=== PATIENT | male | born 1960 | race Caucasian/White ===

== ENCOUNTER 2018-05-23 09:55 | Inpatient (IN) | payer OTHER ==
[~2018-05-23] VITALS: Ht 180.3 cm; Wt 91.3 kg
[2018-05-23] MEDS ORDERED: IV NORMAL SALINE 1,000ML 1,000 ML IV ONE (10:30)
--- NOTE | 2018-05-23 10:36 | PHYS DOC ---
Past History Past Medical History: No Pertinent History Past Surgical History: Appendectomy Alcohol Use: Occasionally Additional Alcohol Information: 2-3 beers daily Drug Use: None Adult General Chief Complaint Chief Complaint: EARACHE/EAR PAIN HPI HPI 57-year-old male with no significant medical history and most pertinent history of diabetes presents with progressive right ear pain and swelling. He states he saw his primary doctor yesterday and was prescribed steroid drops and oral Levaquin. After taking the first antibiotic dose patient states the pain and redness increased. He denies any fever chills or sweats. He states he has had this similar problem once in the and another time in the early . He states he was hospitalized at that time.[] Review of Systems Review of Systems Constitutional: Denies fever or chills [] Eyes: Denies change in visual acuity, redness, or eye pain [] HENT: Per history of present illness[] Respiratory: Denies cough or shortness of breath [] Cardiovascular: No additional information not addressed in HPI [] GI: Denies abdominal pain, nausea, vomiting, bloody stools or diarrhea [] : Denies dysuria or hematuria [] Musculoskeletal: Denies back pain or joint pain [] Integument: Denies rash or skin lesions [] Neurologic: Denies headache, focal weakness or sensory changes [] Endocrine: Denies polyuria or polydipsia [] All other systems were reviewed and found to be within normal limits, except as documented in this note. Current Medications Current Medications Current Medications Medications (Trade) Dose Ordered Sig/Darleen Start Time Stop Time Status Last Admin Dose Admin Levofloxacin/ Dextrose 150 ml @ 150 mls/hr 1X ONCE 05/23/18 10:30 05/23/18 11:29 Sodium Chloride 1,000 ml @ 1,000 mls/hr 1X ONCE 05/23/18 10:30 05/23/18 11:29 Allergies Allergies Allergies Coded Allergies Type Severity Reaction Last Updated Verified No Known Drug Allergies 05/23/18 No Physical Exam Physical Exam Constitutional: Well developed, well nourished, no acute distress, non-toxic appearance. [] HENT: Right ear perichondritis is very evident. Tender and erythematous to however I do not appreciate any area of abscess. The auricular canal is moderately to severely swollen. [] Eyes: PERRLA, EOMI, conjunctiva normal, no discharge. [] Neck: Normal range of motion, no tenderness, supple, no stridor. [] Cardiovascular:Heart rate regular rhythm, no murmur [] Lungs & Thorax: Bilateral breath sounds clear to auscultation [] Abdomen: Bowel sounds normal, soft, no tenderness, no masses, no pulsatile masses. [] Skin: Warm, dry, no erythema, no rash. [] Back: No tenderness, no CVA tenderness. [] Extremities: No tenderness, no cyanosis, no clubbing, ROM intact, no edema. [] Neurologic: Alert and oriented X 3, normal motor function, normal sensory function, no focal deficits noted. [] Psychologic: Affect normal, judgement normal, mood normal. [] Current Patient Data Vital Signs Vital Signs Date Time Temp Pulse Resp B/P (MAP) Pulse Ox O2 Delivery O2 Flow Rate FiO2 05/23/18 09:55 97.4 106 20 96 Room Air EKG EKG [] Radiology/Procedures Radiology/Procedures [] Impressions: Impression: Perichondritis right ear Course & Med Decision Making Course & Med Decision Making Pertinent Labs and Imaging studies reviewed. (See chart for details) [] Dragon Disclaimer Dragon Disclaimer This electronic medical record was generated, in whole or in part, using a voice recognition dictation system. Departure Departure: Referrals: AMINATA CHAUDHARY DO (PCP) ALEX STROUD DO May 23, 2018 10:36
[2018-05-23] MEDS ORDERED: ACETAMINOPHEN 325 MG TABLET PO PRN (10:45)
[2018-05-23 10:50] LABS: BASO % 0 % (0-3); EOS # 0.1 x10^3/uL (0.0-0.7); EOS % 1 % (0-3); HEMATOCRIT 47.7 % (39.0-53.0); HEMOGLOBIN 16.3 g/dL (13.0-17.5); LYMPH # 1.7 x10^3/uL (1.0-4.8); LYMPH % 20 % (24-48); MEAN CORPUSCULAR HEMOGLOBIN 33 pg (25-35); MEAN CORPUSCULAR HGB CONC 34 g/dL (31-37); MEAN CORPUSCULAR VOLUME 97 fL (79-100); MONO % 12 % (0-9); NEUT # 5.7 x10^3uL (1.8-7.7); NEUT % 66 % (31-73); PLATELET COUNT 220 x10^3/uL (140-400); RED BLOOD COUNT 4.93 x10^6/uL (4.30-5.70); RED CELL DISTRIBUTION WIDTH 12.8 % (11.5-14.5); WHITE BLOOD COUNT 8.6 x10^3/uL (4.0-11.0)
[2018-05-23 11:02] LABS: ALBUMIN 3.7 g/dL (3.4-5.0); ALBUMIN/GLOBULIN RATIO 0.9 (1.0-1.7); CALCIUM 9.1 mg/dL (8.5-10.1); CREATININE 0.9 mg/dL (0.7-1.3); GFR 86.7; POTASSIUM 3.8 mmol/L (3.5-5.1); TOTAL BILIRUBIN 0.4 mg/dL (0.2-1.0); TOTAL PROTEIN 7.9 g/dL (6.4-8.2)
[2018-05-23 12:30] VITALS: BP 118/73
--- NOTE | 2018-05-23 14:35 | HP ---
ADMIT DATE: 05/23/2018 HISTORY OF PRESENT ILLNESS: The patient is a 57-year-old male patient who came to the Emergency Room complaining of progressive right ear pain and swelling. He states that he saw his primary care physician who prescribed steroid drops and oral Levaquin after taking the first antibiotic dose, the patient states that the pain and redness has increased. He denied any fever, chills or sweats. He had had similar problems in , another time in early 1999 and he was hospitalized at time. He was seen in the Emergency Room, was diagnosed with right ear otitis externa and perichondritis and was continued on IV Levaquin. PAST MEDICAL HISTORY: Significant for a similar episode of otitis externa. He has no other medical problems. PAST SURGICAL HISTORY: Significant for appendectomy. ALLERGIES: He has no known drug allergies. MEDICATIONS: He occasionally uses ibuprofen [id number]. FAMILY HISTORY: Unremarkable. SOCIAL HISTORY: He is , has 3 sons. He does not smoke, but drinks 3 beers a day. 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 REVIEW OF SYSTEMS: As per history of present illness. PHYSICAL EXAMINATION GENERAL: When I examined him, he looked well and was clearly in no apparent respiratory distress. No pallor, jaundice, cyanosis, or thyromegaly. No jugular venous distension. No limb edema. VITAL SIGNS: His heart rate was 87, blood pressure 118/73, temperature was 98.1, respiratory rate was 20, and oxygen saturation was 96%. HEAD, EYES, EAR, NOSE AND THROAT: Showed normocephalic, atraumatic. NECK: Supple. HEART: Showed normal first and second heart sounds. No gallop, rub or murmur. CHEST: Clear to auscultation. No crepitation or rhonchi. ABDOMEN: Distended, soft, nontender. NEUROLOGIC: He was awake, alert, responding appropriately. All cranial nerves are intact. EXTREMITIES: He moves extremities without difficulty. His examination of the right ear compared to the left showed as marked erythema and swelling of the external ear pinna tragus and the external canal is a slit-like markedly swollen and tender. There is no lymphadenopathy. LABORATORY WORK: Showed a showed a white cell count of 8600, hemoglobin 16, hematocrit 48, MCV 97 and platelet count 220,000 with normal manual differential. His chemistry showed a serum sodium 137, potassium 3.8, chloride 101, bicarbonate 28, anion gap of 8, BUN 12, creatinine 0.9, estimated GFR was 87 mL per minute, his glucose was 102, calcium was 9.1. Total bilirubin, AST, ALT, alkaline phosphatase were normal. His total protein was 7.9 and albumin was 3.7. ASSESSMENT: Otitis externa with perichondritis. PLAN: To continue with IV Levaquin. I will add Ciprodex and the pain medication and see his response with antibiotic both locally and IV. We will decide further management accordingly. JODIE GORDILLO MD DR: TOMI/madelyn JOB#: [id number] / [id number]
[2018-05-23 17:31] VITALS: BP 105/72
[2018-05-23 19:15] VITALS: BP 102/72
[2018-05-23] MEDS: CIPROFLOXACIN 0.3% OPHTH SOLUTION 2.5ML BOTTLE. AD SCH (20:53)
[2018-05-23] MEDS: DEXAMETHASONE 0.1% OPHTH SOLUTION 5ML BOTTLE. AD SCH (20:53)
[2018-05-24 05:59] VITALS: BP 104/70
[2018-05-24 06:30] LABS: BASO % 1 % (0-3); EOS # 0.3 x10^3/uL (0.0-0.7); EOS % 4 % (0-3); HEMATOCRIT 43.8 % (39.0-53.0); HEMOGLOBIN 14.8 g/dL (13.0-17.5); LYMPH % 31 % (24-48); MEAN CORPUSCULAR HEMOGLOBIN 33 pg (25-35); MEAN CORPUSCULAR HGB CONC 34 g/dL (31-37); MEAN CORPUSCULAR VOLUME 98 fL (79-100); MONO # 0.9 x10^3/uL (0.0-1.1); MONO % 14 % (0-9); NEUT # 3.3 x10^3uL (1.8-7.7); NEUT % 51 % (31-73); PLATELET COUNT 205 x10^3/uL (140-400); RED BLOOD COUNT 4.49 x10^6/uL (4.30-5.70); RED CELL DISTRIBUTION WIDTH 12.8 % (11.5-14.5); WHITE BLOOD COUNT 6.5 x10^3/uL (4.0-11.0)
[2018-05-24 06:43] LABS: CALCIUM 8.7 mg/dL (8.5-10.1); CREATININE 0.8 mg/dL (0.7-1.3); GFR 99.3; POTASSIUM 4.1 mmol/L (3.5-5.1)
[2018-05-24] MEDS: CIPROFLOXACIN 0.3% OPHTH SOLUTION 2.5ML BOTTLE. AD SCH (08:31)
[2018-05-24] MEDS: DEXAMETHASONE 0.1% OPHTH SOLUTION 5ML BOTTLE. AD SCH (08:31)
[2018-05-24] MEDS ORDERED: LACTOBACILLUS RHAMNOSUS GG 1 CAPSULE. PO SCH (09:00)
--- NOTE | 2018-05-24 17:50 | DS ---
DATE OF DISCHARGE: 05/24/2018 HOSPITAL COURSE: The patient is possible for this 57-year-old male patient who was admitted with a progressive right ear pain and swelling. He apparently was started on steroid and oral Levaquin by his primary care physician; however, the redness has increased as well as the pain and therefore he was seen in the Emergency Room and was started on IV Levaquin as well as Ciprodex otic drops. He apparently has similar problems in and again in early 1999 and was hospitalized at that time, so we did start him on IV Levaquin and he did well. His redness started to clear and the erythema also started shrinking and a decision was made to discharge him home to continue treatment with IV antibiotic as an outpatient at [facility]. PHYSICAL EXAMINATION: GENERAL: When I examined him this morning, he looked well and was clearly in no apparent respiratory distress. VITAL SIGNS: Her heart rate was 72, blood pressure was 104/70, temperature was 98, respiratory rate was 18 and oxygen saturation was 98% on room air. HEAD, EYES, EARS, NOSE AND THROAT: Normocephalic, atraumatic. His erythema and swelling of the right ear and the right cheek is slightly less. NECK: Supple. HEART: Showed normal first and second heart sounds. No gallop, rub or murmur. CHEST: Clear to auscultation. No crepitation or rhonchi. ABDOMEN: Distended, soft, nontender. No guarding or rigidity. No organomegaly. Hernial orifice intact. Bowel sounds normal. NEUROLOGIC: He was awake, alert, responding appropriately. All cranial nerves intact. EXTREMITIES: He moves extremities without difficulty. He ambulates without assistance or assistive devices. LABORATORY DATA: His lab work this morning showed a white cell count of 6500, hemoglobin 14.8, hematocrit 44, MCV 98 and platelet count 205,000. His chemistry showed a serum sodium 140, potassium 4.1, chloride 106, bicarbonate 24, anion gap of 10, BUN 14, creatinine 0.8, estimated GFR was 99 mL per minute, his glucose 102, calcium was 8.7. So far, there is no growth in the blood culture after 24 hours. DISCHARGE MEDICATIONS: The patient will be discharged home to continue with the Ciprodex as well as Levaquin IV daily as an outpatient. FINAL DISCHARGE DIAGNOSES: 1. Right otitis externa. 2. Right pericostochondritis and chondritis and the right ear pinna. JODIE GORDILLO MD DR: TOMI/madeyln JOB#: [id number] / [id number]
== END 2018-05-24 13:00 | disposition home or self-care (01) | DRG 153 ==
LOC: ER 09:55 → ICU 10:21
PROVIDERS: ADMIT Internal Medicine; ATTEND Internal Medicine
DX: H61.001 Unspecified perichondritis of right external ear (principal); H60.91 Unspecified otitis externa, right ear; Z90.49 Acquired absence of other specified parts of digestive tract; Z79.899 Other long term (current) drug therapy
CPT/HCPCS: 36415; 80048; 80053; 85025; 87040; 87641; 96365; J1956; 99285-25; J7030